=== PATIENT | male | born 1980 | race Caucasian/White ===

== ENCOUNTER 2017-03-18 07:20 | Day surgery (SDC) | payer OTHER ==
[~2017-03-18] VITALS: Ht 172.7 cm; Wt 103.4 kg
[~2017-03-18 07:20] MED LIST: DOXY-13 PO
[2017-03-18] MEDS ORDERED: NS IV 1000 ML 1,000 ML IV ONE (07:33)
[2017-03-18] MEDS ORDERED: fentaNYL INJECTION 100 MCG/2 ML AMP IVP STA ×2 (07:33→10:12)
[2017-03-18 07:43] LABS: BASOPHILS % (AUTO) 0 % (0-10); EOSINOPHILS # (AUTO) 0.1 10^3/uL (0.0-0.3); EOSINOPHILS % (AUTO) 1 % (0-10); LYMPHOCYTES # (AUTO) 2.5 X 10^3 (1.0-4.0); LYMPHOCYTES % (AUTO) 23 % (12-44); MEAN CORPUSCULAR HEMOGLOBIN 32 PG (25-34); MEAN CORPUSCULAR HGB CONC 34 G/DL (32-36); MEAN CORPUSCULAR VOLUME 93 FL (80-99); MEAN PLATELET VOLUME 10.5 FL (7.4-10.4); MONOCYTES # (AUTO) 1.3 X 10^3 (0.0-1.0); MONOCYTES % (AUTO) 12 % (0-12); NEUTROPHILS # (AUTO) 6.8 X 10^3 (1.8-7.8); NEUTROPHILS % (AUTO) 64 % (42-75); PLATELET COUNT 207 10^3/uL (130-400); RED BLOOD COUNT 4.73 10^6/uL (4.35-5.85); RED CELL DISTRIBUTION WIDTH 12.8 % (10.0-14.5); WHITE BLOOD COUNT 10.7 10^3/uL (4.3-11.0)
--- NOTE | 2017-03-18 07:51 | ED Abdominal Pain ---
General Stated Complaint: RIGHT SIDE PAIN Source of Information: Patient Exam Limitations: No Limitations History of Present Illness Time Seen By Provider: 07:25 Initial Comments Here with report of right upper quadrant abdominal pain and right low chest wall pain that has been going on for 2-3 days. Denies nausea, vomiting or diarrhea. Reports he got very dehydrated yesterday playing softball and this did not help the pain. Pain is much worse this morning. It does not seem to be affected by diet. Does admit to drinking 8 or so beers a day habitually. Timing/Duration: 2-3 Days Severity/Quality: Moderate, Aching, Cramping, Sharp Location: RUQ Radiation: Chest Activities at Onset: None Modifying Factors: Worsens With Coughing, Worsens With Movement Associated Symptoms: Chest Pain, No Fever/Chills, No Nausea/Vomiting, No Shortness of Air, No Swelling/Mass in Abdomen, No Weakness Allergies and Home Medications Allergies Coded Allergies: No Known Drug Allergies (Unverified , 07/23/13) Home Medications Doxycycline Hyclate 100 Mg Capsule, 1 EACH PO DAILY, #20 Prescribed by: DANIEL CEDENO on 07/23/13 8668 Review of Systems Constitutional: see HPI, No chills, No fever EENTM: No Symptoms Reported Respiratory: See HPI, Denies Shortness of Air, Other (pain worse with deep breathing) Cardiovascular: See HPI, Denies Edema, Denies Lightheadedness Gastrointestinal: Abdominal Pain, Denies Nausea, Denies Rectal Bleeding, Denies Vomiting Genitourinary: No Symptoms Reported Musculoskeletal: see HPI, muscle pain, other (right lower chest wall.) Skin: no symptoms reported Psychiatric/Neurological: No Symptoms Reported Endocrine: No Symptoms Reported All Other Systems Reviewed Negative Unless Noted: Yes Past Tsqahoq-Ecpsiu-Nattni Hx Patient Social History Alcohol Use: Regular Use Recreational Drug Use: No Smoking Status: Current Everyday Smoker Type Used: Cigarettes Recent Foreign Travel: No Contact w/Someone Who Travel: No Surgeries HX Surgeries: Yes (WISDOM TEETH, ANKLE FX) Respiratory Hx Respiratory Disorders: No Cardiovascular Hx Cardiac Disorders: No (HTN NON-TREATED) Neurological Hx Neurological Disorders: Yes (CLUSTER HEADACHES) Reproductive System Hx Reproductive Disorders: No Genitourinary Hx Genitourinary Disorders: No Gastrointestinal Hx Gastrointestinal Disorders: No Musculoskeletal Hx Musculoskeletal Disorders: No Endocrine Hx Endocrine Disorders: No HEENT HX ENT Disorders: No Cancer Hx Cancer: No Psychosocial Hx Psychiatric Problems: No Integumentary HX Skin/Integumentary Disorder: No Blood Transfusions Hx Blood Disorders: No Physical Exam Vital Signs VS - Last 72 Hours, by Label 03/18/17 07:55 Temp 97.9 Pulse 86 Resp 20 B/P (MAP) 131/84 Pulse Ox 98 Capillary Refill : General Appearance: WD/WN, no apparent distress HEENT: PERRL/EOMI, pharynx normal Neck: full range of motion, supple Respiratory: lungs clear, normal breath sounds, other (tenderness to the right low lateral chest wall) Cardiovascular: regular rate, rhythm, no murmur Gastrointestinal: soft, No guarding, No rebound, tenderness (right upper quadrant) Extremities: non-tender, normal inspection Back: normal inspection, no CVA tenderness, no vertebral tenderness Neurologic/Psychiatric: alert, oriented x 3 Skin: normal color, warm/dry Progress/Results/Core Measures Results/Orders Lab Results Laboratory Tests Test 03/18/17 07:36 Range/Units White Blood Count 10.7 4.3-11.0 10^3/uL Red Blood Count 4.73 4.35-5.85 10^6/uL Hemoglobin 15.1 13.3-17.7 G/DL Hematocrit 44 40-54 % Mean Corpuscular Volume 93 80-99 FL Mean Corpuscular Hemoglobin 32 25-34 PG Mean Corpuscular Hemoglobin Concent 34 32-36 G/DL Red Cell Distribution Width 12.8 10.0-14.5 % Platelet Count 207 130-400 10^3/uL Mean Platelet Volume 10.5 H 7.4-10.4 FL Neutrophils (%) (Auto) 64 42-75 % Lymphocytes (%) (Auto) 23 12-44 % Monocytes (%) (Auto) 12 0-12 % Eosinophils (%) (Auto) 1 0-10 % Basophils (%) (Auto) 0 0-10 % Neutrophils # (Auto) 6.8 1.8-7.8 X 10^3 Lymphocytes # (Auto) 2.5 1.0-4.0 X 10^3 Monocytes # (Auto) 1.3 H 0.0-1.0 X 10^3 Eosinophils # (Auto) 0.1 0.0-0.3 10^3/uL Basophils # (Auto) 0.0 0.0-0.1 10^3/uL Sodium Level 136 135-145 MMOL/L Potassium Level 3.9 3.6-5.0 MMOL/L Chloride Level 97 L 98-107 MMOL/L Carbon Dioxide Level 24 21-32 MMOL/L Anion Gap 15 H 5-14 MMOL/L Blood Urea Nitrogen 16 7-18 MG/DL Creatinine 1.15 0.60-1.30 MG/DL Estimat Glomerular Filtration Rate > 60 BUN/Creatinine Ratio 14 Glucose Level 95 70-105 MG/DL Calcium Level 9.4 8.5-10.1 MG/DL Total Bilirubin 1.5 H 0.1-1.0 MG/DL Aspartate Amino Transf (AST/SGOT) 77 H 5-34 U/L Alanine Aminotransferase (ALT/SGPT) 64 H 0-55 U/L Alkaline Phosphatase 69 40-136 U/L Total Protein 7.6 6.4-8.2 GM/DL Albumin 4.6 H 3.2-4.5 GM/DL Lipase 15 8-78 U/L My Orders Orders - DANIELA MILLS MD Cbc With Automated Diff (03/18/17 07:33) Comprehensive Metabolic Panel (03/18/17 07:33) Lipase (03/18/17 07:33) Ua Culture If Indicated (03/18/17 07:33) Saline Lock/Iv-Start (03/18/17 07:33) Ns Iv 1000 Ml (Sodium Chloride 0.9%) (03/18/17 07:33) Fentanyl Injection (Sublimaze Injection (03/18/17 07:33) Chest Pa/Lat (2 View) (03/18/17 07:33) Us Gallbladder [id number] (03/18/17 08:29) Fentanyl Injection (Sublimaze Injection (03/18/17 10:12) Medications Given in ED Current Medications Medications Dose Ordered Sig/Dedra Route Start Time Stop Time Status Last Admin Dose Admin Sodium Chloride 1,000 ml @ 0 mls/hr Q0M ONCE IV 03/18/17 07:33 03/18/17 07:36 DC 03/18/17 08:05 0 MLS/HR Vital Signs/I&O Vital Sign - Last 12Hours 03/18/17 07:55 Temp 97.9 Pulse 86 Resp 20 B/P (MAP) 131/84 Pulse Ox 98 Progress Note : Progress Note Seen and evaluated. IV, labs, UA, chest x-ray, normal saline 1 L bolus and fentanyl 75 g IV ordered. Monitor patient. Labs indicate concerns for liver/ gallbladder. Gallbladder ultrasound ordered. This is markedly positive. 1014 : Discussed the case with Dr. Stark and he accepts patient for admission, observation status with likely cholecystectomy. Repeat fentanyl 100 g IV ordered for persistent pain. Patient and family agree with plan. Diagnostic Imaging Diagonstic Imaging: Xray Plain Films/CT/US/NM/MRI: chest Comments VIA [facility]. [place], [place] NAME: GAVIOTA BAUMANN [facility] REC#: [id number] PT STATUS: REG ER : 1980 PHYSICIAN: DANIELA MILLS MD ADMIT DATE: 03/18/17/ER Draft Date of Exam:03/18/17 CHEST PA/LAT (2 VIEW) EXAM: CHEST PA/LAT (2 VIEW) INDICATION: Right chest pain. COMPARISON: None. FINDINGS: Normal heart size and pulmonary vascularity. No focal pulmonary opacity, pleural effusion or pneumothorax. No acute osseous findings. IMPRESSION: Negative chest. Dictated on workstation # [id number] Dict: 03/18/17 0801 Trans: 03/18/17 0805 [facility] [id number] Interpreted by: MERRICK HUNG MD Electronically signed by: Diagonstic Imaging: Ultrasound Plain Films/CT/US/NM/MRI: abdomen Comments VIA [place], [place] NAME: GAVIOTA BAUMANN [facility] REC#: [id number] PT STATUS: REG ER : 1980 PHYSICIAN: DANIELA MILLS MD ADMIT DATE: 03/18/17/ER Draft Date of Exam:03/18/17 US GALLBLADDER [id number] PROCEDURE: US Gallbladder. TECHNIQUE: Multiple real-time grayscale images were obtained over the right upper quadrant in various projections. INDICATION: Abdominal pain. COMPARISON: None. FINDINGS: Normal echogenicity of the liver with no focal mass or fluid collection. Diffuse gallbladder wall thickening measuring approximately 6 mm. No cholelithiasis. No definite pericholecystic fluid. Positive sonographic Mayfield sign. The common bile duct is obscured by bowel. The pancreas is not well seen as well. The right kidney measures 10.8 cm. No right renal mass, cyst, stone or hydronephrosis. No free fluid in the visualized upper abdomen. IMPRESSION: The gallbladder wall is diffusely thickened. There is no cholelithiasis or definite pericholecystic fluid identified. The region of the common bile duct is obscured by overlying bowel gas. Positive sonographic Mayfield sign. Dictated on workstation # [id number] Dict: 03/18/17 0932 Trans: 03/18/17 0938 [facility] [id number] Interpreted by: MERRICK HUNG MD Electronically signed by: Departure Communication Time/Spoke to Admitting Phy: 10:14 Impression Impression: Primary Impression: Acute acalculous cholecystitis Disposition: ADMITTED INPATIENT Condition: Stable Decision to Admit Reason: Admit from ER (General) Decision to Admit/Date: Mar 18, 2017 Time/Decision to Admit Time: 10:14 Departure-Patient Inst. Referrals: NO,LOCAL PHYSICIAN (PCP/Family) Primary Care Physician DANIELA MILLS MD Mar 18, 2017 07:50
[2017-03-18 08:03] LABS: ALANINE AMINOTRANSFERASE 64 U/L (0-55); ALBUMIN 4.6 GM/DL (3.2-4.5); ANION GAP 15 MMOL/L (5-14); ASPARTATE AMINO TRANSFERASE 77 U/L (5-34); BILIRUBIN,TOTAL 1.5 MG/DL (0.1-1.0); BLOOD UREA NITROGEN 16 MG/DL (7-18); BUN/CREATININE RATIO 14; CALCIUM 9.4 MG/DL (8.5-10.1); CARBON DIOXIDE 24 MMOL/L (21-32); CHLORIDE 97 MMOL/L (98-107); CREATININE SERUM 1.15 MG/DL (0.60-1.30); GFR ESTIMATED > 60; GLUCOSE 95 MG/DL (70-105); LIPASE 15 U/L (8-78); POTASSIUM 3.9 MMOL/L (3.6-5.0); SODIUM 136 MMOL/L (135-145); TOTAL PROTEIN 7.6 GM/DL (6.4-8.2)
--- NOTE | 2017-03-18 08:05 | Diagnostic Imaging Report ---
EXAM: CHEST PA/LAT (2 VIEW) INDICATION: Right chest pain. COMPARISON: None. FINDINGS: Normal heart size and pulmonary vascularity. No focal pulmonary opacity, pleural effusion or pneumothorax. No acute osseous findings. IMPRESSION: Negative chest. Dictated by: Dictated on workstation # [id number]
--- NOTE | 2017-03-18 09:39 | Diagnostic Imaging Report ---
PROCEDURE: US Gallbladder. TECHNIQUE: Multiple real-time grayscale images were obtained over the right upper quadrant in various projections. INDICATION: Abdominal pain. COMPARISON: None. FINDINGS: Normal echogenicity of the liver with no focal mass or fluid collection. Diffuse gallbladder wall thickening measuring approximately 6 mm. No cholelithiasis. No definite pericholecystic fluid. Positive sonographic Mayfield sign. The common bile duct is obscured by bowel. The pancreas is not well seen as well. The right kidney measures 10.8 cm. No right renal mass, cyst, stone or hydronephrosis. No free fluid in the visualized upper abdomen. IMPRESSION: The gallbladder wall is diffusely thickened. There is no cholelithiasis or definite pericholecystic fluid identified. The region of the common bile duct is obscured by overlying bowel gas. Positive sonographic Mayfield sign. Dictated by: Dictated on workstation # [id number]
[2017-03-18 10:46] VITALS: BP 124/87
[2017-03-18] MEDS ORDERED: ONDANSETRON 4 MG/2 ML (SDV) Z0FRAN IV PRN (11:00)
[2017-03-18] MEDS ORDERED: CATHETER FLUSH 10 ML SYR IV PRN (11:00)
[2017-03-18] MEDS: NS IV 1000 ML 1,000 ML IV SCH ×2 (11:12→19:44)
[2017-03-18] MEDS: fentaNYL INJECTION 100 MCG/2 ML AMP IV PRN ×5 (12:06→21:53)
[2017-03-18] MEDS ORDERED: LIDOCAINE PF 2% 5 ML (XYLOCAINE) VIAL ONE (15:05)
[2017-03-18] MEDS ORDERED: proPOfol 200 MG/20 ML (DIPRIVAN) VIAL IV ONE (15:05)
[2017-03-18] MEDS ORDERED: MIDAZOLAM 2 MG/2 ML (VERSED) VIAL ONE (15:07)
[2017-03-18] MEDS ORDERED: fentaNYL INJECTION 100 MCG/2 ML AMP ONE (15:07)
[2017-03-18] MEDS ORDERED: ROCURONIUM 50 MG/5 ML (ZEMURON) VIAL IV ONE (15:10)
[2017-03-18] MEDS ORDERED: LACTATED RINGERS 0 ML IV ONE (15:10)
[2017-03-18] MEDS ORDERED: SEVOFLURANE (ULTANE) 15 ML INHAL SOLN ONE (15:10)
[2017-03-18] MEDS ORDERED: FAMOTIDINE 20MG/2ML IV (PEPCID) IV ONE (16:00)
--- NOTE | 2017-03-18 16:20 | Progress Note-Pre Operative ---
Pre-Operative Progress Note H&P Reviewed The H&P was reviewed, patient examined and no changes noted. Date Seen by Provider: Mar 18, 2017 Time Seen by Provider: 15:35 Date H&P Reviewed: Mar 18, 2017 Time H&P Reviewed: 16:20 Pre-Operative Diagnosis: Acalculous cholecystitis HONEY MRATIN MD Mar 18, 2017 4:20 pm
--- NOTE | 2017-03-18 16:20 | History & Physicial ---
History of Present Illness History of Present Illness Reason for visit/HPI 3 days history of increasing pain over the right upper quadrant of the abdomen. Evaluation is confirmed a calculus cholecystitis with thickening of the gallbladder wall to about 6 mm. There is no pericholecystic fluid. Date of Admission Mar 18, 2017 at 10:15 am Date Seen by Provider: Mar 18, 2017 Time Seen by Provider: 15:35 I consulted on this patient on 03/18/17 16:16 Attending Physician Honey Martin MD Admitting Physician No,Local Physician Consult Allergies and Home Medications Allergies Coded Allergies: No Known Drug Allergies (Unverified , 07/23/13) Home Medications No Active Prescriptions or Reported Meds Past Nkdmjxf-Apruia-Fbshgm Hx Patient Social History Marrital Status: single Employed/Student: employed Alcohol Use: Regular Use Recreational Drug Use: No Smoking Status: Current Everyday Smoker Type Used: Cigarettes Physical Abuse Screen: No Sexual Abuse: No Recent Foreign Travel: No Contact w/other who traveled: No Recent Hopitalizations: No Recent Infectious Disease Expo: No Seasonal Allergies Seasonal Allergies: Yes Surgeries HX Surgeries: Yes (WISDOM TEETH, ANKLE FX) Surgeries: Orthopedic, Tonsillectomy Respiratory Hx Respiratory Disorders: No Cardiovascular Hx Cardiovascular Disorders: No (HTN NON-TREATED) Neurological Hx Neurological Disorders: Yes (CLUSTER HEADACHES) Reproductive System Hx Reproductive Disorders: No Genitourinary Hx Genitourinary Disorders: No Gastrointestinal Hx Gastrointestinal Disorders: No Musculoskeletal Hx Musculoskeletal Disorders: No Endocrine Hx Endocrine Disorders: No HEENT HX ENT Disorders: No Cancer Hx Cancer: No Psychosocial Hx Psychiatric Problems: No Integumentary HX Skin/Integumentary Disorder: No Blood Transfusions Hx Blood Disorders: No Constitutional: malaise EENTM: no symptoms reported Respiratory: no symptoms reported Cardiovascular: no symptoms reported Gastrointestinal: RUQ, abdominal pain (RUQ) Genitourinary: no symptoms reported Musculoskeletal: no symptoms reported Skin: no symptoms reported Psychiatric/Neurological: No Symptoms Reported Physical Exam Vital Signs Vital Sign - Last 12Hours 03/18/17 03/18/17 07:55 10:46 Temp 97.9 Pulse 86 Resp 20 B/P (MAP) 131/84 Pulse Ox 98 O2 Delivery Room Air Capillary Refill : Less Than 3 Seconds General Appearance: Anxious, Mild Distress HEENT: Normal ENT Inspection Neck: Normal Inspection Respiratory: Lungs Clear Cardiovascular: Regular Rate, Rhythm Gastrointestinal: Tenderness Back: Normal Inspection Extremity: Normal Capillary Refill Neurologic/Psychiatric: Alert, Oriented x3 Skin: Normal Color, Warm/Dry Comments Tenderness over the right upper quadrant with positive Mayfield sign Assessment/Plan Assessment and Plan Gentleman with sub-acute acalculous cholecystitis. Elevated liver enzymes possibly due to chronic alcohol use or Mirizzi's syndrome. Reasonable to proceed with lap scopic cholecystectomy. Operative details expected recovery, complications of bile leak etc. discussed in detail. He seems to be in agreement to proceed Problems: Clinical Quality Measures DVT/VTE Risk/Contraindication: Risk Factor Score Per Nursin RFS Level Per Nursing on Admit: 1=Low/No VTE PPX HONEY MARTIN MD Mar 18, 2017 4:20 pm
[2017-03-18 16:30] VITALS: BP 139/78
[2017-03-18] MEDS ORDERED: ceFAZolin 2 GM/50 ML NS 50 ML IV NR (16:30)
[2017-03-18] MEDS ORDERED: metroNIDAZOLE 500MG/100ML IVPB 100 ML IV NR (16:30)
--- NOTE | 2017-03-18 16:54 | Diagnostic Imaging Report ---
INDICATION: Cholecystitis. FINDINGS: After the intravenous administration of 5.1 mCi of technetium 99m Choletec, scintigraphic images were obtained over the abdomen. The initial images reveal normal distribution of activity throughout the liver. There is prompt appearance of activity in the gallbladder and biliary tree. Activity passes into the small bowel. The patient was given Ensure Plus to stimulate the gallbladder. The gallbladder ejection fraction is calculated to be 24%. Values of less than 35% are considered abnormal. IMPRESSION: No evidence of acute cholecystitis or biliary obstruction; however, depression of the gallbladder ejection may be due to chronic cholecystitis or biliary dyskinesia. Dictated by: Dictated on workstation # [id number]
[2017-03-18 19:30] VITALS: BP 120/81
[2017-03-19] MEDS: fentaNYL INJECTION 100 MCG/2 ML AMP IV PRN ×4 (00:28→09:51)
[2017-03-19 00:30] VITALS: BP 110/76
[2017-03-19] MEDS ORDERED: metroNIDAZOLE 500MG/100ML IVPB 100 ML ONE (03:41)
[2017-03-19] MEDS ORDERED: FAMOTIDINE 20MG/2ML IV (PEPCID) ONE (03:46)
[2017-03-19] MEDS: NS IV 1000 ML 1,000 ML IV SCH (04:05)
[2017-03-19 04:28] VITALS: BP 100/64
[2017-03-19] MEDS ORDERED: BUP/EPI 0.25% 1:200,000 (MARCAINE) 10 ML VIAL IJ ONE (05:22)
[2017-03-19] MEDS ORDERED: LIDOCAINE PF 2% 5 ML (XYLOCAINE) VIAL ONE (05:42)
[2017-03-19] MEDS ORDERED: SEVOFLURANE (ULTANE) 15 ML INHAL SOLN ONE ×2 (05:42→07:16)
[2017-03-19] MEDS ORDERED: proPOfol 200 MG/20 ML (DIPRIVAN) VIAL IV ONE (05:42)
[2017-03-19] MEDS: LACTATED RINGERS 1,000 ML IV PRN ×2 (05:50→06:46)
[2017-03-19] MEDS ORDERED: LACTATED RINGERS 1,000 ML IV ONE (06:22)
[2017-03-19] MEDS ORDERED: ONDANSETRON 4 MG/2 ML (SDV) Z0FRAN ONE ×2 (06:23→06:39)
[2017-03-19] MEDS ORDERED: HYDROmorphone (DILAUDID) 2 MG/ML VIAL ONE (06:38)
[2017-03-19] MEDS ORDERED: morphine INJ 10 MG/ML 1ML (SYR OR VIAL) ONE (06:39)
[2017-03-19] MEDS ORDERED: fentaNYL INJECTION 100 MCG/2 ML AMP ONE (06:56)
[2017-03-19] MEDS ORDERED: ALBUTEROL INHALER HFA (VENTOLIN HFA) 8 GM IH ONE (07:06)
--- NOTE | 2017-03-19 07:10 | Operative Report ---
Operative Report Date of Procedure/Surgery Mar 19, 2017 Surgeon (s) HONEY MARTIN MD Program Consultant (s): Not applicable Post-Operative Diagnosis Same Procedure Performed Laparoscopic cholecystectomy Description of Procedure Anesthesia Type: General Estimated blood loss (mL): Minimal Specimen(s) collected/removed Gallbladder Description of the Procedure Indication for procedure: This gentleman presented with chronic acalculous cholecystitis with decreased ejection fraction on HIDA scan. He was offered laparoscopic cholecystectomy. Informed consent was obtained after reviewing the operative details and complications of wound infection, bile leak and persistence of this pain. Description of the procedure: He was placed supine on the operative table and general anesthesia induced using an endotracheal tube. A gram of Ancef and 500 mg of Flagyl were administered intravenously as prophylaxis against wound infection. Sequential compression devices were placed around his legs, to minimize the risk of venous thrombosis. Abdomen was prepared and draped in the usual sterile manner. A supraumbilical incision was made and the linea alba incised vertically. A Case cannula was placed and carbon dioxide insufflated, to an intra-abdominal pressure of 15 mmHg. Anatomy was visualized using a 30, conventional laparoscope. Gallbladder was rather thick due to chronic inflammation. Under direct view, I placed a 5 mm trocar over the epigastric region, followed by 2 additional 5 mm trocars along the right side of the abdomen. The patient was then turned into steep reverse Trendelenburg position. The fundus of the gallbladder was retracted cephalad and the infundibulum grasped with another pair of forceps. Thickened tissue around Calot's triangle was incised using Harmonic scalpel, delineating the cystic duct and artery. The former was first divided between ligaclips and the stump reinforced with a PDS Endoloop. Cystic artery was then divided between ligaclips. Cholecystectomy was completed using Harmonic scalpel. Intra-abdominal pressure was reduced to 11 mmHg, looking for bleeding from the liver. One area was encountered and controlled easily using cautery. The gallbladder was then placed in an Endo Catch bag and removed via the supraumbilical trocar site. The fascia over this incision was closed using #1 Vicryl. Skin incisions were closed using 4-0 Vicryl, in a subcuticular fashion. 0.25 percent Marcaine with epinephrine was infiltrated along the incisions, both preemptively and at the conclusion of the operation. He tolerated the procedure well, was extubated in the operating room and taken to the recovery room in a stable condition. [place], sponges and instruments were correct at the end of the operation Findings of the Procedure See operative note Allergies and Home Medications Allergies Coded Allergies: No Known Drug Allergies (Unverified , 07/23/13) Home Medications No Active Prescriptions or Reported Meds HONEY MARTIN MD Mar 19, 2017 7:10 am
[2017-03-19] MEDS ORDERED: HYDR-3820 PO (07:12)
--- NOTE | 2017-03-19 07:12 | Discharge Inst-Simple/Standard ---
Discharge Inst-Standard Discharge Medications New, Converted or Re-Newed RX: RX on Chart Patient Instructions/Follow Up Plan of Care/Instructions/FU: Incentive spirometry. Band-Aids off in 48 hours. Follow-up in 2 weeks. Activity as Tolerated: Yes Discharge Diet: No Restrictions HONEY MARTIN MD Mar 19, 2017 7:12 am
[2017-03-19] MEDS ORDERED: ONDANSETRON 4 MG/2 ML (SDV) Z0FRAN IVP PRN (07:30)
[2017-03-19] MEDS: morphine INJ 10 MG/ML 1ML (SYR OR VIAL) IVP PRN ×2 (07:33→07:47)
[2017-03-19] MEDS: HYDROmorphone (DILAUDID) 2 MG/ML VIAL IVP PRN ×2 (07:39→07:57)
[2017-03-19 08:00] VITALS: BP_SYST 100; BP_SYST 125; BP_DIAS 64; BP_DIAS 80
[2017-03-19] MEDS: HYDROcodone/APAP 10 MG/325 MG (LORTAB) TAB PO PRN ×2 (09:39→13:16)
[2017-03-19] MEDS ORDERED: KETOROLAC 30 MG/ML VIAL IVP ONE (10:45)
[2017-03-19 12:00] VITALS: BP 129/86
[2017-03-19 13:57] VITALS: BP 129/86
== END 2017-03-19 13:45 | disposition home or self-care (01) ==
LOC: EDUNIT# 07:20 → ER 07:23 → 4TH 10:15 → UNDOADMOB 10:15 → 4TH 10:15 → SDC 10:15 → UNDODISOB 03-19 13:45
PROVIDERS: ATTEND Surgery
DX: K81.1 Chronic cholecystitis (principal); F17.210 Nicotine dependence, cigarettes, uncomplicated; Z72.89 Other problems related to lifestyle
CPT/HCPCS: 36415; 71020; 76705; 78227; 80053; 83690; 85025; 87081; 88304; 96361; 96374; 96376

== ENCOUNTER 2018-12-12 10:27 | Emergency (ER) | payer SELFPAY ==
[~2018-12-12] VITALS: Ht 172.7 cm; Wt 111.1 kg
[~2018-12-12 10:27] MED LIST changes: +HYDR-3820 PO
[2018-12-12 10:28] VITALS: BP 134/99
--- OUTSIDE RECORDS SUMMARY | 2018-12-12 10:47 | XMS REPORT | Continuity of Care Document ---
Author Organization Unknown Address Unknown Allergies Active Description Code Type Severity Reaction Onset Reported/Identified Relationship to Patient Clinical Status Yes No Known Drug Allergies [id number] Drug Allergy Unknown N/A 07/23/2013 Medications There is no data. Problems Date Dx Coded Attending Type Code Diagnosis Diagnosed By 07/23/2013 PAO HURLEY, DANIEL Luciano Ot 682.5 CELLULITIS OF BUTTOCK 03/19/2017 MARIO HURLEY, HONEY Prabhakar Ot F17.210 NICOTINE DEPENDENCE, CIGARETTES, UNCOMPL 03/19/2017 MARIO HURLEY, HONEY Prabhakar Ot K81.1 CHRONIC CHOLECYSTITIS 03/19/2017 MARIO HURLEY, HONEY Prabhakar Ot Z72.89 OTHER PROBLEMS RELATED TO LIFESTYLE 03/22/2017 MARIO HURLEY, HONEY Prabhakar Ot F17.210 NICOTINE DEPENDENCE, CIGARETTES, UNCOMPL 03/22/2017 MARIO HURLEY, HONEY Prabhakar Ot K81.1 CHRONIC CHOLECYSTITIS 03/22/2017 MARIO HURLEY, HONEY Prabhakar Ot Z72.89 OTHER PROBLEMS RELATED TO LIFESTYLE Procedures There is no data. Results Test Result Range Complete blood count (CBC) with automated white blood cell (WBC) differential - 03/18/17 07:36 Blood leukocytes automated count (number/volume) 10.7 10*3/uL 4.3-11.0 Blood erythrocytes automated count (number/volume) 4.73 10*6/uL 4.35-5.85 Venous blood hemoglobin measurement (mass/volume) 15.1 g/dL 13.3-17.7 Blood hematocrit (volume fraction) 44 % 40-54 Automated erythrocyte mean corpuscular volume 93 [foz_us] 80-99 Automated erythrocyte mean corpuscular hemoglobin (mass per erythrocyte) 32 pg 25-34 Automated erythrocyte mean corpuscular hemoglobin concentration measurement ( mass/volume) 34 g/dL 32-36 Automated erythrocyte distribution width ratio 12.8 % 10.0-14.5 Automated blood platelet count (count/volume) 207 10*3/uL 130-400 Automated blood platelet mean volume measurement 10.5 [foz_us] 7.4-10.4 Automated blood neutrophils/100 leukocytes 64 % 42-75 Automated blood lymphocytes/100 leukocytes 23 % 12-44 Blood monocytes/100 leukocytes 12 % 0-12 Automated blood eosinophils/100 leukocytes 1 % 0-10 Automated blood basophils/100 leukocytes 0 % 0-10 Blood neutrophils automated count (number/volume) 6.8 10*3 1.8-7.8 Blood lymphocytes automated count (number/volume) 2.5 10*3 1.0-4.0 Blood monocytes automated count (number/volume) 1.3 10*3 0.0-1.0 Automated eosinophil count 0.1 10*3/uL 0.0-0.3 Automated blood basophil count (count/volume) 0.0 10*3/uL 0.0-0.1 Comprehensive metabolic panel - 03/18/17 07:36 Serum or plasma sodium measurement (moles/volume) 136 mmol/L 135-145 Serum or plasma potassium measurement (moles/volume) 3.9 mmol/L 3.6-5.0 Serum or plasma chloride measurement (moles/volume) 97 mmol/L 98-107 Carbon dioxide 24 mmol/L 21-32 Serum or plasma anion gap determination (moles/volume) 15 mmol/L 5-14 Serum or plasma urea nitrogen measurement (mass/volume) 16 mg/dL 7-18 Serum or plasma creatinine measurement (mass/volume) 1.15 mg/dL 0.60-1.30 Serum or plasma urea nitrogen/creatinine mass ratio 14 NRG Serum or plasma creatinine measurement with calculation of estimated glomerular filtration rate > NRG Serum or plasma glucose measurement (mass/volume) 95 mg/dL 70-105 Serum or plasma calcium measurement (mass/volume) 9.4 mg/dL 8.5-10.1 Serum or plasma total bilirubin measurement (mass/volume) 1.5 mg/dL 0.1-1.0 Serum or plasma alkaline phosphatase measurement (enzymatic activity/volume) 69 U/L 40-136 Serum or plasma aspartate aminotransferase measurement (enzymatic activity/ volume) 77 U/L 5-34 Serum or plasma alanine aminotransferase measurement (enzymatic activity/volume ) 64 U/L 0-55 Serum or plasma protein measurement (mass/volume) 7.6 g/dL 6.4-8.2 Serum or plasma albumin measurement (mass/volume) 4.6 g/dL 3.2-4.5 Lipase - 03/18/17 07:36 Lipase 15 U/L 8-78 Methicillin resistant Staphylococcus aureus (MRSA) screening culture - 21:50 Methicillin resistant Staphylococcus aureus (MRSA) screening culture NEG NRG Encounters ACCT No. Visit Date/Time Discharge Status Pt. Type Provider Facility Loc./Unit Complaint [id number] 03/18/2017 10:15:00 03/19/2017 13:45:00 DIS Outpatient MARIO HURLEY, HONEY Prabhakar [facility] ACALCULOUS CHOLECYSTITIS [id number] 07/23/2013 12:43:00 07/23/2013 15:45:00 DIS Emergency PAO HURLEY, DANIEL Luciano [facility] ER BOIL ON BACK SIDE [id number] 12/12/2018 10:28:00 ACT Emergency NICO HURLEY, MANNIE Lange [facility] ER TROUBLE BREATHING;BACK PAIN; HEADACHE
--- OUTSIDE RECORDS SUMMARY | 2018-12-12 10:47 | XMS REPORT ---
Author Author Migration, Doctor Organization [facility] Address Unknown Phone Unavailable Care Team Providers Care Director [facility] Name Role Phone Migration, Doctor Unavailable Unavailable PROBLEMS Unknown Problems ALLERGIES No Information ENCOUNTERS Encounter Location Date Diagnosis [facility] [address] [address] Aug, [facility] [address] [address] Nov, [facility] [address] [address] Nov, [facility] [address] [address] Jan, [facility] [address] [address] December, [facility] [address] [address] Nov, [facility] [address] [address] Nov, [facility] [address] [address] Oct, [facility] [address] [address] Aug, [facility] [address] [address] Aug, [facility] [address] [address] Aug, [facility] [id number] [address] Jul, [facility] [id number] [address] Jul, [facility] [id number] [address] Jul, [facility] [id number] [address] May, [facility] [id number] [address] Jun, [facility] [id number] [address] Jun, [facility] [id number] [address] May, [facility] [address] [facility] [id number] [address] May, IMMUNIZATIONS No Known Immunizations SOCIAL HISTORY Never Assessed REASON FOR VISIT EMR-[place] PLAN OF CARE VITAL SIGNS MEDICATIONS Medication Instructions Dosage Frequency Start Date End Date Duration Status Lisinopril 10 mg 1 tablet by Oral route 1 time per day December, Active cyclobenzaprine 10 mg 1 tablet by Oral route 3 times per dayPRN December Active RESULTS No Results PROCEDURES No Known procedures INSTRUCTIONS MEDICATIONS ADMINISTERED No Known Medications
--- NOTE | 2018-12-12 10:50 | NUR ---
PATIENT HAS REDNESS PRESENT TO TICK BITE ON UPPER LEFT BACK.
--- NOTE | 2018-12-12 11:28 | NUR ---
PATIENT REFUSED CARDIAC WORKUP AND WANTED TO LEAVE AMA. PATIENT SIGNS AMA FORM AFTER BEING TOLD RISKS ASSOCIATED WITH LEAVING AMA. PATIENT AKNOWLEDGES RISKS ASSOCIATED WITH LEAVING AND IS AMBULATORY WITH FROM ER. PATIENT IS CONSCIOUS, ALERT AND ORIENTED X 4 UPON LEAVING AMA.
--- NOTE | 2018-12-12 11:29 | ED General ---
General Chief Complaint: General Problems/Pain Stated Complaint: TROUBLE BREATHING;BACK PAIN;HEADACHE Nursing Triage Note: PATIENT AMBULATORY TO ER ROOM 2 WITH COMPLAINT OF A TICK BITE ON SATURDAY. PATIENT STATES HE PULLED OFF THE TICK THAT WAS ATTACHED TO HIS UPPER LEFT BACK AND TODAY HE FEELS SHORT OF BREATH, HAS A HEADACHE AND BODY ACHES. PATIENT IS CONSCIOUS, ALERT AND ORIENTED X 4. Nursing Sepsis Screen: No Definite Risk History of Present Illness Date Seen by Provider: Dec 12, 2018 Time Seen by Provider: 11:15 Initial Comments 38-year-old male presents for a tick bite to his left upper back, generalized myalgias, midsternal chest pressure, shortness of breath, vomiting 1 this morning followed by diaphoresis, headache and fatigue. He did not eat breakfast this morning, but drank tea before and after vomiting. The tick bit occurred 12/07/18, his removed a very small tick and 12/10/18 he noticed erythema and tenderness at the site, looked it up on the internet and believes he has Lyme Disease. He denies nausea at this time. He rates his midsternal chest pressure to 5/10. He does not have a primary care provider. Both parents are living with no known cardiac history, and siblings have cardiac history, no family history of DM. He has not taken any kjvi-zmg-nakprrb medications for his symptoms and did not take ASA. He unaware of his lipids being checked. He reports his symptoms to be fairly consistent. He was able to sleep last night. 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 He denies any vision changes, but does complain of photophobia or headache. He is wearing sunglasses Timing/Duration: 3-4 Days Severity: Moderate Associated Systoms: Chest Pain, Cough, Diaphoresis (productive at time), Fever/ Chills, Headaches; No Loss of Appetite; Malaise, Nausea/Vomiting, Rash; No Seizure; Shortness of Air; No Syncope; Weakness Allergies and Home Medications Allergies Coded Allergies: No Known Drug Allergies (Unverified , 07/23/13) Home Medications Hydrocodone/Acetaminophen 1 Each Tablet, 1 TAB PO Q4H PRN for PAIN-MILD TO MODERATE Prescribed by: HONEY MARTIN on 03/19/17 0712 Patient Home Medication List Home Medication List Reviewed: Yes Review of Systems Review of Systems Constitutional: see HPI, diaphoresis, malaise, weakness EENTM: see HPI, no symptoms reported Respiratory: see HPI, cough Cardiovascular: see HPI, chest pain Gastrointestinal: see HPI (midsternal), nausea, vomiting Genitourinary: no symptoms reported, see HPI Musculoskeletal: see HPI, back pain, joint pain, muscle pain Skin: see HPI, lesions (left upper back) Psychiatric/Neurological: See HPI, Headache Hematologic/Lymphatic: No Symptoms Reported, See HPI Immunological/Allergic: no symptoms reported, see HPI All Other Systems Reviewed Negative Unless Noted: Yes Past Kusqmmm-Jltrhj-Yqbece Hx Past Med/Social Hx: Reviewed Nursing Past Med/Soc Hx, Reviewed and Corrections made Patient Social History Alcohol Use: Regular Use Number of Drinks Today: 6 Alcohol Beverage of Choice: Beer Recreational Drug Use: No Type Used: Cigarettes (3-4 cigarettes a week) 2nd Hand Smoke Exposure: No Recent Foreign Travel: No Contact w/Someone Who Travel: No Recent Infectious Disease Expo: No Recent Hopitalizations: No Immunizations Up To Date PED Vaccines UTD: Yes Seasonal Allergies Seasonal Allergies: Yes Past Medical History Surgeries: No (WISDOM TEETH, ANKLE FX, T&A) Orthopedic, Tonsillectomy Respiratory: No Cardiac: No (HTN NON-TREATED) Neurological: Yes (CLUSTER HEADACHES) Reproductive Disorders: No Genitourinary: No Gastrointestinal: No Musculoskeletal: No Endocrine: No HEENT: No Cancer: No Psychosocial: No Integumentary: No Blood Disorders: No Physical Exam Vital Signs Vital Signs - First Documented 12/12/18 10:28 Temp 98.2 Pulse 81 Resp 16 B/P (MAP) 134/99 (111) Pulse Ox 99 O2 Delivery Room Air Capillary Refill : Less Than 3 Seconds Height, Weight, BMI Height: 5'8.00" Weight: 245lbs. 1.0oz. 111.209732xt; 34.7 BMI Method:Actual General Appearance: No Apparent Distress, WD/WN Eyes: Bilateral Eye Normal Inspection, Bilateral Eye PERRL, Bilateral Eye EOMI HEENT: PERRL/EOMI, TMs Normal, Normal ENT Inspection, Pharynx Normal Neck: Full Range of Motion, Normal Inspection, Non Tender; No Lymphadenopathy ( L), No Lymphadenopathy (R) Respiratory: Chest Non Tender, Lungs Clear, Normal Breath Sounds Cardiovascular: Regular Rate, Rhythm, No Edema, No JVD, No Murmur, Normal Peripheral Pulses Gastrointestinal: Normal Bowel Sounds, Non Tender, Soft Back: Normal Inspection, Muscle Spasm (cervical and lumbar spine) Extremity: Normal Capillary Refill, Normal Inspection, Normal Range of Motion, Non Tender, No Calf Tenderness, No Pedal Edema Neurologic/Psychiatric: Alert, Oriented x3, No Motor/Sensory Deficits, Normal Mood/Affect Skin: Normal Color, Warm/Dry, Erythema (2 cm x 2 cm area to left upper back, no induration or fluctuance, slight tenderness. No erythema migrans. ) Progress/Results/Core Measures Suspected Sepsis Recent Fever Within 48 Hours: No Infection Criteria Present: None New/Unexplained Altered Menta: No Sepsis Screen: No Definite Risk SIRS Temperature:98.2 Pulse: 81 Respiratory Rate: 16 Blood Pressure 134 /99 Mean: 111 Results/Orders Vital Signs/I&O 12/12/18 10:28 Temp 98.2 Pulse 81 Resp 16 B/P (MAP) 134/99 (111) Pulse Ox 99 O2 Delivery Room Air Capillary Refill : Less Than 3 Seconds Blood Pressure Mean: 111 Progress Note : Time: 11:15 Progress Note Patient seen and evaluated, discussed the evaluation and complaints and with the patient. Recommended cardiac workup with chest x-ray, EKG and labs, will add tick panel and influenza a/b, ASA 324 mg po. Explained that his symptoms are broad that we need to start with cardiac based on his symptoms of mid- sternal chest pain with 1 episode of vomiting and diaphoresis. Patient's presented, patient said "this lady is fucking nuts, wants to work up my tick bite with a bunch of tests." After a detailed explanation that his first complaint was chest pain and he had secondary symptoms of nausea, vomiting, and diaphoresis, his heart is my first differential. They agreed with my plan of care. Initial B/P 134/99, current B/P 156/120. Patient denies a history of hypertension. 1128 putting order in computer for patient and he presented to nurse's station requesting to leave AMA. Spoke to patient and his , discussed risks vs benefits of him leaving without full work up. He verbalized understanding and signed AMA paperwork. Discharge instructions and return precautions were reviewed. Encouraged follow-up for blood pressure with a primary care provider. Departure Impression Primary Impression: Myalgia Additional Impressions: Tick bite Qualified Codes: W57.XXXA - Bitten or stung by nonvenomous insect and other nonvenomous arthropods, initial encounter Chest pressure Hypertension Qualified Codes: I10 - Essential (primary) hypertension Disposition: HOME, SELF-CARE Condition: Against Medical Advice Departure-Patient Inst. Decision time for Depature: 11:28 Referrals: NO,LOCAL PHYSICIAN (PCP/Family) Primary Care Physician Patient Instructions: Chest Pain (DC), Insect Bites and Stings (DC) Add. Discharge Instructions: Aspirin 81 mg 1 tablet daily. Alternate between ibuprofen 600 mg and Tylenol 650 mg every 4 hours for fever or pain. Establish care with a primary care provider. Return to emergency department if symptoms are not improving or worsen. All discharge instructions reviewed with patient and/or family. Voiced understanding. ROLAN RUSSELL Dec 12, 2018 11:29
== END 2018-12-12 11:31 | disposition home or self-care (01) ==
LOC: EDUNIT# 10:27 → ER 10:28
DX: S20.469A Insect bite (nonvenomous) of unspecified back wall of thorax, initial encounter (principal); M79.10 Myalgia, unspecified site; R07.89 Other chest pain; I10 Essential (primary) hypertension; G44.009 Cluster headache syndrome, unspecified, not intractable; F17.210 Nicotine dependence, cigarettes, uncomplicated; Z90.89 Acquired absence of other organs; W57.XXXA Bitten or stung by nonvenomous insect and other nonvenomous arthropods, initial encounter
CPT/HCPCS: 99281

== ENCOUNTER 2020-07-14 15:44 | Emergency (ER) | payer SELFPAY ==
[~2020-07-14] VITALS: Ht 173 cm; Wt 102.0 kg
[~2020-07-14 15:44] MED LIST changes: +ACHYD1T PO; -HYDR-3820 PO
--- NOTE | 2020-07-14 16:41 | ED General ---
General Chief Complaint: General Problems/Pain Stated Complaint: RIGHT ANKLE PAIN;RIGHT TOE PAIN;RIGHT LEG PAIN Nursing Triage Note: PT STATES HX OF GOUT, HAVING A FLARE UP WITH PAIN IN RT ANKLE AND FOOT FOR TWO DAYS, STATES HIS DR WON'T FILL HIS RX BECAUSE HE NEEDS A COLONOSCOPY BUT CAN'T AFFORD TO GET ONE. Nursing Sepsis Screen: No Definite Risk Source of Information: Patient Exam Limitations: No Limitations Allergies and Home Medications Allergies Coded Allergies: No Known Drug Allergies (Unverified , 07/23/13) Home Medications Hydrocodone Bit/Acetaminophen 1 Each Tablet, 1 TAB PO Q4H PRN for PAIN-MILD TO MODERATE Prescribed by: HONEY MARTIN on 03/19/17 0712 Past Jeykzhx-Tbhufj-Qugdzp Hx Patient Social History Alcohol Use: Occasionally Uses Number of Drinks Today: AA Alcohol Beverage of Choice: Beer, Vodka Recreational Drug Use: No Smoking Status: Current Someday Smoker Type Used: Cigarettes 2nd Hand Smoke Exposure: No Recent Foreign Travel: No Contact w/Someone Who Travel: No Recent Infectious Disease Expo: No Recent Hopitalizations: No Physical Abuse: No Sexual Abuse: No Mistreated: No Fear: No Immunizations Up To Date Tetanus Booster (TDap): Unknown PED Vaccines UTD: Yes Seasonal Allergies Seasonal Allergies: Yes Past Medical History Surgeries: No (WISDOM TEETH, ANKLE FX, T&A) Orthopedic, Tonsillectomy Respiratory: No Cardiac: No (HTN NON-TREATED) Neurological: Yes (CLUSTER HEADACHES) Reproductive Disorders: No Genitourinary: No Gastrointestinal: No Musculoskeletal: No Endocrine: No HEENT: No Cancer: No Psychosocial: No Integumentary: No Blood Disorders: No Physical Exam Vital Signs Vital Signs - First Documented 07/14/20 16:12 Temp 36.1 Pulse 92 Resp 20 B/P (MAP) 151/111 (124) O2 Delivery Room Air Capillary Refill : Less Than 3 Seconds Height, Weight, BMI Height: 5'8.00" Weight: 245lbs. 1.0oz. 111.454345pd; 34.00 BMI Method:Actual Progress/Results/Core Measures Suspected Sepsis Recent Fever Within 48 Hours: No Infection Criteria Present: None New/Unexplained Altered Menta: No Sepsis Screen: No Definite Risk SIRS Temperature: Pulse: 92 Respiratory Rate: 20 Laboratory Tests 07/14/20 16:35: Blood Pressure 151 /111 Mean: 124 Laboratory Tests 07/14/20 16:35: Results/Orders Lab Results Laboratory Tests Test 07/14/20 16:35 Range/Units My Orders Orders - THOMAS GARCIA APRN Cbc With Automated Diff (07/14/20 16:29) Uric Acid (07/14/20 16:29) Basic Metabolic Panel (07/14/20 16:29) Ed Iv/Invasive Line Start (07/14/20 16:29) Methylprednisolone Sod Succ (Solu-Medrol (07/14/20 16:45) Vital Signs/I&O 07/14/20 16:12 Temp 36.1 Pulse 92 Resp 20 B/P (MAP) 151/111 (124) O2 Delivery Room Air Capillary Refill : Less Than 3 Seconds Blood Pressure Mean: 124 Departure Departure-Patient Inst. Referrals: NO,LOCAL PHYSICIAN (PCP/Family) Primary Care Physician THOMAS GARCIA APRN Jul 14, 2020 16:41
--- NOTE | 2020-07-14 16:41 | ED Lower Extremity ---
General Chief Complaint: General Problems/Pain Stated Complaint: RIGHT ANKLE PAIN;RIGHT TOE PAIN;RIGHT LEG PAIN Nursing Triage Note: PT STATES HX OF GOUT, HAVING A FLARE UP WITH PAIN IN RT ANKLE AND FOOT FOR TWO DAYS, STATES HIS DR WON'T FILL HIS RX BECAUSE HE NEEDS A COLONOSCOPY BUT CAN'T AFFORD TO GET ONE. Nursing Sepsis Screen: No Definite Risk Source: patient (CAROLINE SEGAL MED STUDENT) History of Present Illness Date Seen by Provider: Jul 14, 2020 Time Seen by Provider: 16:15 Initial Comments Patient is a 40yo male with a PMH of gout presenting c/o right ankle and toe pain for x2 days. He states he is having a gout flare and says the pain has progressed over the past two days to the point he can't walk. He reports last having a flare 3 months ago, but states the pain is worse this time. He has ta hayley allopurinol in the past but has not had it in 2 months. He rates the pain a 10/10 and locates it to the right ankle and right first toe. He denies taking any OTC pain medications to help. Pain/Injury Location: right ankle, right 1st toe (CAROLINE SEGAL MED STUDENT) Allergies and Home Medications Allergies Coded Allergies: No Known Drug Allergies (Unverified , 07/23/13) Home Medications Colchicine 0.6 Mg Capsule, 0.6 MG PO ONCE Prescribed by: THOMAS GARCIA on 07/14/201708 Hydrocodone Bit/Acetaminophen 1 Each Tablet, 1 TAB PO Q4H PRN for PAIN-MILD TO MODERATE Prescribed by: HONEY MARTIN on 03/19/17 0712 Hydrocodone/Acetaminophen 1 Each Tablet, 1 EACH PO Q4H PRN for PAIN-MODERATE (5- 7) Prescribed by: THOMAS GARCIA on 07/14/201708 Patient Home Medication List Home Medication List Reviewed: Yes (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) Review of Systems Constitutional: No chills, No dizziness, No fever, No malaise EENTM: no symptoms reported Respiratory: No cough, No short of breath, No wheezing Cardiovascular: No chest pain, No edema, No palpitations Gastrointestinal: No abdominal pain, No constipation, No diarrhea, No nausea, No vomiting Genitourinary: no symptoms reported Musculoskeletal: gout, joint pain Skin: no symptoms reported (CAROLINE SE[employer] MED STUDENT) Past Jgcgqjz-Zinpxx-Fndkwa Hx Patient Social History Alcohol Use: Occasionally Uses Number of Drinks Today: AA Alcohol Beverage of Choice: Beer, Vodka Recreational Drug Use: No Smoking Status: Current Someday Smoker Type Used: Cigarettes 2nd Hand Smoke Exposure: No Recent Foreign Travel: No Contact w/Someone Who Travel: No Recent Infectious Disease Expo: No Recent Hopitalizations: No Physical Abuse: No Sexual Abuse: No Mistreated: No Fear: No ([employer]INE SE[employer] MED STUDENT) Immunizations Up To Date Tetanus Booster (TDap): Unknown PED Vaccines UTD: Yes ([employer]INE [employer] MED STUDENT) Seasonal Allergies Seasonal Allergies: Yes ([employer]INE [employer] MED STUDENT) Past Medical History Surgeries: No (WISDOM TEETH, ANKLE FX, T&A) Gallbladder, Orthopedic, Tonsillectomy Respiratory: No Cardiac: No (HTN NON-TREATED) Neurological: Yes (CLUSTER HEADACHES) Headaches /Migraines Reproductive Disorders: No Genitourinary: No Gastrointestinal: No Musculoskeletal: No Endocrine: No HEENT: No Cancer: No Psychosocial: No Integumentary: No Blood Disorders: No ([employer]INE SE[employer] MED STUDENT) Physical Exam Vital Signs Vital Signs - First Documented 07/14/20 07/14/20 16:12 17:43 Temp 36.1 Pulse 92 Resp 20 B/P (MAP) 151/111 (124) Pulse Ox 97 O2 Delivery Room Air (THOMAS GARCIA APRN) Vital Signs Capillary Refill : Less Than 3 Seconds (CAROLINE SEGAL MED STUDENT) Height, Weight, BMI Height: 5'8.00" Weight: 245lbs. 1.0oz. 111.381566mt; 34.00 BMI Method:Actual General Appearance: WD/WN, no apparent distress HEENT: PERRL/EOMI, normal ENT inspection, pharynx normal Neck: non-tender, full range of motion Cardiovascular: normal peripheral pulses, regular rate, rhythm, no murmur Respiratory: lungs clear, normal breath sounds, no respiratory distress, no accessory muscle use Gastrointestinal: normal bowel sounds, non tender; No distended, No guarding Hips: bilateral hip non-tender, bilateral hip normal range of motion Knees: bilateral knee non-tender, bilateral knee normal range of motion Ankles: left ankle non-tender, left ankle normal range of motion; right ankle pain, right ankle swelling Feet: right foot pain (erythema and tenderness of R 1st MTP joint), right foot swelling Neurologic/Tendon: normal sensation, normal motor functions Neurologic/Psychiatric: alert, normal mood/affect, oriented x 3 (CAROLINE SEGAL,MED STUDENT) Progress/Results/Core Measures Results/Orders Lab Results Laboratory Tests Test 07/14/20 16:35 Range/Units White Blood Count 14.0 H 4.3-11.0 10^3/uL Red Blood Count 4.73 4.30-5.52 10^6/uL Hemoglobin 15.4 13.3-17.7 g/dL Hematocrit 48 40-54 % Mean Corpuscular Volume 101 H 80-99 fL Mean Corpuscular Hemoglobin 33 25-34 pg Mean Corpuscular Hemoglobin Concent 32 32-36 g/dL Red Cell Distribution Width 12.7 10.0-14.5 % Platelet Count 208 130-400 10^3/uL Mean Platelet Volume 9.9 9.0-12.2 fL Immature Granulocyte % (Auto) 1 % Neutrophils (%) (Auto) 71 42-75 % Lymphocytes (%) (Auto) 19 12-44 % Monocytes (%) (Auto) 9 0-12 % Eosinophils (%) (Auto) 1 0-10 % Basophils (%) (Auto) 0 0-10 % Neutrophils # (Auto) 9.9 H 1.8-7.8 10^3/uL Lymphocytes # (Auto) 2.7 1.0-4.0 10^3/uL Monocytes # (Auto) 1.2 H 0.0-1.0 10^3/uL Eosinophils # (Auto) 0.1 0.0-0.3 10^3/uL Basophils # (Auto) 0.1 0.0-0.1 10^3/uL Immature Granulocyte # (Auto) 0.1 0.0-0.1 10^3/uL Neutrophils % (Manual) 77 % Lymphocytes % (Manual) 10 % Monocytes % (Manual) 5 % Eosinophils % (Manual) 0 % Basophils % (Manual) 0 % Band Neutrophils 0 % Reactive Lymphocytes 8 % Blood Morphology Comment NORMAL Sodium Level 138 135-145 MMOL/L Potassium Level 3.7 3.6-5.0 MMOL/L Chloride Level 100 98-107 MMOL/L Carbon Dioxide Level 26 21-32 MMOL/L Anion Gap 12 5-14 MMOL/L Blood Urea Nitrogen 11 7-18 MG/DL Creatinine 1.03 0.60-1.30 MG/DL Estimat Glomerular Filtration Rate > 60 BUN/Creatinine Ratio 11 Glucose Level 93 70-105 MG/DL Uric Acid 9.0 H 2.6-7.2 MG/DL Calcium Level 8.9 8.5-10.1 MG/DL (THOMAS GARCIA APRN) My Orders Orders - THOMAS GARCIA APRN Cbc With Automated Diff (07/14/20 16:29) Uric Acid (07/14/20 16:29) Basic Metabolic Panel (07/14/20 16:29) Ed Iv/Invasive Line Start (07/14/20 16:29) Methylprednisolone Sod Succ (Solu-Medrol (07/14/20 16:45) Manual Differential (07/14/20 16:35) Colchicine Tablet (Colcrys Tablet) (07/14/20 17:15) Fentanyl Injection (Sublimaze Injection (07/14/20 17:30) (TOHMAS GARCIA APRN) Medications Given in ED Current Medications Medications Dose Ordered Sig/Dedra Route Start Time Stop Time Status Last Admin Dose Admin Colchicine 1.2 mg ONCE ONCE PO 07/14/20 17:15 07/14/20 17:16 DC 07/14/20 17:37 1.2 MG Fentanyl Citrate 50 mcg ONCE ONCE IVP 07/14/20 17:30 07/14/20 17:31 DC 07/14/20 17:37 50 MCG Methylprednisolone Sodium Succinate 80 mg ONCE ONCE IV 07/14/20 16:45 07/14/20 16:46 DC 07/14/20 16:45 80 MG (THOMAS GARCIA APRN) Vital Signs/I&O 07/14/20 07/14/20 07/14/20 16:12 17:37 17:43 Temp 36.1 36.1 36.1 Pulse 92 88 Resp 20 20 B/P (MAP) 151/111 (124) 150/100 (124) Pulse Ox 97 O2 Delivery Room Air Room Air (THOMAS GARCIA APRN) Blood Pressure Mean: 124 Departure Communication (Admissions) I have seen the patient and agree with the clinical exam and the plan of care. I will give him a prescription for colchicine 1.2 mg now then 0.6 mg 1 hour from now as well as some hydrocodone for pain. (THOMAS GARCIA APRN) Impression Primary Impression: Gouty arthritis Disposition: HOME, SELF-CARE Condition: Stable Departure-Patient Inst. Decision time for Depature: 17:06 (THOMAS GARCIA APRN) Referrals: NO,LOCAL PHYSICIAN (PCP/Family) Primary Care Physician Patient Instructions: Gout (DC) Add. Discharge Instructions: 1. Follow-up with your regular doctor. Return to ER for any concerns. All discharge instructions reviewed with patient and/or family. Voiced understanding. Scripts Hydrocodone/Acetaminophen (Hydrocodone-Acetamin 5-325 mg) 1 Each Tablet 1 EACH PO Q4H PRN for PAIN-MODERATE (5-7), #10 TAB Prov: THOMAS GARCIA APRN 07/14/20 Colchicine (Colchicine) 0.6 Mg Capsule 0.6 MG PO ONCE, #1 CAP Prov: THOMAS GARCIA APRN 07/14/20 CAROLINE SEGAL,MED STUDENT Jul 14, 2020 16:41 THOMAS GARCIA APRN Jul 14, 2020 17:06
[2020-07-14] MEDS ORDERED: methylPREDNISolone 40 MG/ML (Solu-MEDROL) VIAL IV ONE (16:45)
[2020-07-14 16:46] LABS: BASOPHILS # (AUTO) 0.1 10^3/uL (0.0-0.1); BASOPHILS % (AUTO) 0 % (0-10); EOSINOPHILS # (AUTO) 0.1 10^3/uL (0.0-0.3); EOSINOPHILS % (AUTO) 1 % (0-10); HEMATOCRIT 48 % (40-54); HEMOGLOBIN 15.4 g/dL (13.3-17.7); LYMPHOCYTES # (AUTO) 2.7 10^3/uL (1.0-4.0); LYMPHOCYTES % (AUTO) 19 % (12-44); MEAN CORPUSCULAR HEMOGLOBIN 33 pg (25-34); MEAN CORPUSCULAR HGB CONC 32 g/dL (32-36); MEAN CORPUSCULAR VOLUME 101 fL (80-99); MEAN PLATELET VOLUME 9.9 fL (9.0-12.2); MONOCYTES # (AUTO) 1.2 10^3/uL (0.0-1.0); MONOCYTES % (AUTO) 9 % (0-12); NEUTROPHILS # (AUTO) 9.9 10^3/uL (1.8-7.8); NEUTROPHILS % (AUTO) 71 % (42-75); PLATELET COUNT 208 10^3/uL (130-400)
[2020-07-14 16:52] LABS: CHLORIDE 100 MMOL/L (98-107); POTASSIUM 3.7 MMOL/L (3.6-5.0); SODIUM 138 MMOL/L (135-145)
[2020-07-14 16:53] LABS: CALCIUM 8.9 MG/DL (8.5-10.1)
[2020-07-14 16:54] LABS: GLUCOSE 93 MG/DL (70-105)
[2020-07-14 16:55] LABS: CARBON DIOXIDE 26 MMOL/L (21-32)
[2020-07-14 16:58] LABS: CREATININE SERUM 1.03 MG/DL (0.60-1.30); GFR ESTIMATED > 60
[2020-07-14 16:59] LABS: BUN/CREATININE RATIO 11
[2020-07-14] MEDS ORDERED: ACHD5005 PO (17:09)
[2020-07-14] MEDS ORDERED: COLC0.6C3 PO (17:09)
[2020-07-14 17:12] LABS: BAND NEUTROPHILS 0 %; BASOPHILS % (MANUAL) 0 %; EOSINOPHILS % (MANUAL) 0 %; LYMPHOCYTES % (MANUAL) 10 %; MONOCYTES % (MANUAL) 5 %; NEUTROPHILS % (MANUAL) 77 %; RBC MORPH NORMAL; REACTIVE LYMPHOCYTES 8 %
[2020-07-14] MEDS ORDERED: COLCHICINE 0.6 MG (COLCRYS) TABLET PO ONE (17:15)
[2020-07-14] MEDS ORDERED: fentaNYL INJECTION 100 MCG/2 ML AMP IVP ONE (17:30)
[2020-07-14 17:43] VITALS: BP 150/100
== END 2020-07-14 17:43 | disposition home or self-care (01) ==
LOC: EDUNIT# 15:44 → ER 15:45
DX: M10.9 Gout, unspecified (principal); F17.210 Nicotine dependence, cigarettes, uncomplicated
CPT/HCPCS: 36415; 80048; 84550; 85007; 85027; 96374; 96375

== ENCOUNTER 2020-07-27 12:39 | Emergency (ER) | payer SELFPAY ==
[~2020-07-27] VITALS: Ht 172.7 cm; Wt 99.7 kg
[~2020-07-27 12:39] MED LIST changes: +ACHD5005 PO; +COLC0.6C3 PO
--- NOTE | 2020-07-27 14:03 | ED General ---
General Chief Complaint: General Problems/Pain Stated Complaint: GOUT R AND L FOOT Nursing Triage Note: Pt to ED with c/o gout in RLE and LLE. Pt reports stopping Allopurinol two day ago. Pt reports Allopurinol worsened symptoms and caused gout to spread from L to R foot. Nursing Sepsis Screen: No Definite Risk Source of Information: Patient Exam Limitations: No Limitations History of Present Illness Date Seen by Provider: Jul 27, 2020 Time Seen by Provider: 13:40 Initial Comments This is a well-appearing 40-year-old male who presents to the ER with complaints of left ankle and left toe pain. States he was evaluated and treated for gouty arthritis 3 days ago in this ER. Pain presented again today and rates 10 out of 10 at this time, localized to left great toe and ankle. States he has cut back on drinking alcohol and only drinks one 12 ounce glass of Vodka with orange juice every night. Also states that he has been watching his diet to avoid gout attacks. No other complaints. Allergies and Home Medications Allergies Coded Allergies: No Known Drug Allergies (Unverified , 07/23/13) Home Medications Colchicine 0.6 Mg Capsule, 0.6 MG PO ONCE Prescribed by: THOMAS GARCIA on 07/14/20 1709 Hydrocodone Bit/Acetaminophen 1 Each Tablet, 1 TAB PO Q4H PRN for PAIN-MILD TO MODERATE Prescribed by: HONEY MARTIN on 03/19/17 0712 Hydrocodone/Acetaminophen 1 Each Tablet, 1 EACH PO Q4H PRN for PAIN-MODERATE (5- 7) Prescribed by: THOMAS GARCIA on 07/14/20 1709 Hydrocodone/Acetaminophen 1 Each Tablet, 1 EACH PO Q4H PRN for PAIN-BREAKTHROUGH Prescribed by: KARL ORTEGA on 07/27/20 1450 Prednisone 20 Mg Tab, 40 MG PO DAILY Prescribed by: KARL ORTEGA on 07/27/20 1444 Patient Home Medication List Home Medication List Reviewed: Yes Review of Systems Review of Systems Constitutional: no symptoms reported EENTM: no symptoms reported Respiratory: no symptoms reported Cardiovascular: no symptoms reported Gastrointestinal: no symptoms reported Genitourinary: no symptoms reported Musculoskeletal: no symptoms reported Skin: change in color (left ankle ) Psychiatric/Neurological: No Symptoms Reported Hematologic/Lymphatic: No Symptoms Reported Immunological/Allergic: no symptoms reported Past Gvkolyy-Iysipc-Okvetu Hx Patient Social History Alcohol Use: Occasionally Uses Number of Drinks Today: FF Alcohol Beverage of Choice: Beer, Vodka Recreational Drug Use: No Smoking Status: Former Smoker Type Used: Cigarettes 2nd Hand Smoke Exposure: No Recent Foreign Travel: No Contact w/Someone Who Travel: No Recent Infectious Disease Expo: No Recent Hopitalizations: No Immunizations Up To Date Tetanus Booster (TDap): Unknown PED Vaccines UTD: Yes Seasonal Allergies Seasonal Allergies: Yes Past Medical History Surgeries: No (WISDOM TEETH, ANKLE FX, T&A) Gallbladder, Orthopedic, Tonsillectomy Respiratory: No Cardiac: No (HTN NON-TREATED) Neurological: Yes (CLUSTER HEADACHES) Headaches /Migraines Reproductive Disorders: No Genitourinary: No Gastrointestinal: No Musculoskeletal: No Endocrine: No HEENT: No Cancer: No Psychosocial: No Integumentary: No Blood Disorders: No Physical Exam Vital Signs Vital Signs - First Documented 07/27/20 12:47 Temp 36.9 Pulse 91 Resp 20 B/P (MAP) 144/94 (111) Pulse Ox 98 O2 Delivery Room Air Capillary Refill : Less Than 3 Seconds Height, Weight, BMI Height: 5'8.00" Weight: 245lbs. 1.0oz. [id number]; 33.00 BMI Method:Actual General Appearance: No Apparent Distress, WD/WN Neck: Full Range of Motion, Normal Inspection Respiratory: Lungs Clear, Normal Breath Sounds Cardiovascular: Regular Rate, Rhythm, No Murmur, Normal Peripheral Pulses Extremity: Normal Capillary Refill, Inflammation (erythema and swelling of left great toe and left ankle ), Pedal Edema (Left foot 1+) Neurologic/Psychiatric: Alert, Oriented x3, No Motor/Sensory Deficits, Normal Mood/Affect Skin: Normal Color, Warm/Dry Progress/Results/Core Measures Suspected Sepsis Recent Fever Within 48 Hours: No Infection Criteria Present: None New/Unexplained Altered Menta: No Sepsis Screen: No Definite Risk SIRS Temperature: Pulse: 91 Respiratory Rate: 20 Blood Pressure 144 /94 Mean: 111 Results/Orders My Orders Orders - KARL ORTEGA APRN Iv Heplock-Insert (Order) (07/27/20 14:01) Fentanyl Injection (Sublimaze Injection (07/27/20 14:15) Ketorolac Injection (Toradol Injection) (07/27/20 14:15) Colchicine Tablet (Colcrys Tablet) (07/27/20 14:45) Medications Given in ED Current Medications Medications Dose Ordered Sig/Dedra Route Start Time Stop Time Status Last Admin Dose Admin Fentanyl Citrate 50 mcg ONCE ONCE IVP 07/27/20 14:15 07/27/20 14:16 DC 07/27/20 14:30 50 MCG Ketorolac Tromethamine 30 mg ONCE ONCE IVP 07/27/20 14:15 07/27/20 14:16 DC 07/27/20 14:31 30 MG Vital Signs/I&O 07/27/20 07/27/20 12:47 15:00 Temp 36.9 36.9 Pulse 91 91 Resp 20 20 B/P (MAP) 144/94 (111) 144/94 (111) Pulse Ox 98 98 O2 Delivery Room Air Capillary Refill : Less Than 3 Seconds Blood Pressure Mean: 111 Progress Note : Progress Note Strongly encouraged to follow up with PCP for recurrent episodes, avoiding alcohol, and avoiding red meat and seafood. Verbalized understanding. Reviewed discharge POC with him and he is agreeable with plan. Departure Impression Primary Impression: Gout attack Disposition: HOME, SELF-CARE Condition: Improved Departure-Patient Inst. Decision time for Depature: 14:41 Referrals: NO,LOCAL PHYSICIAN (PCP/Family) Primary Care Physician Patient Instructions: Gout (DC) Add. Discharge Instructions: Plan: 1. Discharge home. 2. Follow up with primary care provider. 3. Take Prednisone 40mg by mouth daily for 5 days, take with food. 4. Return for any new or concerning symptoms. All discharge instructions reviewed with patient and/or family. Voiced understanding. Scripts Hydrocodone/Acetaminophen (Hydrocodone-Acetamin 5-325 mg) 1 Each Tablet 1 EACH PO Q4H PRN for PAIN-BREAKTHROUGH, #10 TAB 0 Refills Prov: KARL ORTEGA [employer]IEF [employer] 07/27/20 Prednisone (Prednisone) 20 Mg Tab 40 MG PO DAILY for 5 Days, #12 TAB 0 Refills Prov: KARL ORTEGA CHIEF [employer]PUT[employer]ER[employer] 07/27/20 KARL ORTEGA CHIEF DEPUTY SHERIFF Jul 27, 2020 14:03
[2020-07-27] MEDS ORDERED: KETOROLAC 30 MG/ML VIAL IVP ONE (14:15)
[2020-07-27] MEDS ORDERED: fentaNYL INJECTION 100 MCG/2 ML AMP IVP ONE (14:15)
[2020-07-27] MEDS ORDERED: PRD20T PO ×2 (14:43→14:44)
[2020-07-27] MEDS ORDERED: COLCHICINE 0.6 MG (COLCRYS) TABLET PO ONE (14:45)
[2020-07-27] MEDS ORDERED: ACHD5005 PO (14:50)
[2020-07-27 15:00] VITALS: BP 144/94
== END 2020-07-27 15:00 | disposition home or self-care (01) ==
LOC: EDUNIT# 12:39 → ER 12:41
DX: M10.9 Gout, unspecified (principal); Z87.891 Personal history of nicotine dependence; Z79.52 Long term (current) use of systemic steroids
CPT/HCPCS: 99283